=== PATIENT | female | born 1990 | race Caucasian/White ===

== ENCOUNTER 2018-12-17 20:02 | Emergency (ER) | payer OTHER ==
[~2018-12-17] VITALS: Ht 182.9 cm; Wt 158.8 kg
[~2018-12-17 20:02] MED LIST: AMOXICILLIN875 MG PO; CEFTIN500 MG PO; COMBIVENT INH; HYDROCODONE-ACE15 ML PO; IBUPROFEN 400400 M1 PO; MUCINEX600 MG PO; NOHOMEMEDICATIONS; PERCOCET 5-3251 EACH PO; TYLENOL EX-STR500 M2 PO
[2018-12-17 21:38] LABS: HEMATOCRIT 41.1 % (37.0-47.0); MCH 30.7 pg (26.0-34.0); MCV 90.2 fL (80.0-100.0); RBC 4.56 mil/uL (4.20-5.00); WBC 8.8 thou/uL (4.0-11.0)
[2018-12-17 21:48] LABS: PROTIME 10.4 Seconds (9.3-11.4)
[2018-12-17 21:50] LABS: CALCIUM 8.8 mg/dL (8.5-10.1); CREATININE 0.9 mg/dL (0.6-1.0); POTASSIUM 3.6 mmol/L (3.5-5.1)
[2018-12-17] MEDS ORDERED: CLEOCIN HCL150 MG PO (22:16)
[2018-12-17] MEDS ORDERED: NORCO 5-325 TA1 EACH PO (22:16)
[2018-12-17 22:40] VITALS: BP 158/72
== END 2018-12-17 22:40 | disposition home or self-care (01) ==
LOC: ER 20:02
PROVIDERS: Physician Assistant
DX: I87.8 Other specified disorders of veins (principal); M79.89 Other specified soft tissue disorders; K08.89 Other specified disorders of teeth and supporting structures; F17.210 Nicotine dependence, cigarettes, uncomplicated